=== PATIENT | male | born 1985 | race Two or more races ===

== ENCOUNTER 2021-11-11 23:24 | Emergency (ER) | payer SELFPAY ==
[~2021-11-11] VITALS: Ht 165.1 cm; Wt 61.4 kg
[2021-11-12 02:00] VITALS: BP 142/65
[2021-11-12] MEDS ORDERED: IBUPROFEN 600 MG TABLET PO ONE (02:15)
== END 2021-11-12 02:34 | disposition home or self-care (01) ==
LOC: EMS 23:30
DX: S09.90XA Unspecified injury of head, initial encounter (principal); Y04.0XXA Assault by unarmed brawl or fight, initial encounter; Y93.89 Activity, other specified; Y92.89 Other specified places as the place of occurrence of the external cause; Y99.8 Other external cause status
CPT/HCPCS: 99282; Z7502; Z7610